=== PATIENT | female | born 1975 | race Caucasian/White ===

== ENCOUNTER 2019-05-17 06:00 | Outpatient (RCR) | payer OTHER, SELFPAY | END 2019-06-16 00:01 | LOC: TPT 06:00 | PROVIDERS: Family Provider Internal Medicine; Visit Provider Specialist | DX: M75.02 Adhesive capsulitis of left shoulder (principal) | CPT/HCPCS: 97110 ×2; 97140 ×2 ==

== ENCOUNTER 2020-12-05 13:11 | Outpatient (CLI) | payer OTHER, SELFPAY ==
--- NOTE | 2020-12-05 13:30 | MM_ITS ---
WS: [id number] BILATERAL DIGITAL SCREENING MAMMOGRAPHY WITH CAD CLINICAL INFORMATION: Z12.39 - Encounter for other screening for malignant neop... HISTORY: Screening mammogram. No current complaints. COMPARISON: TECHNIQUE: Bilateral CC and MLO views. FINDINGS: The breasts are composed of heterogeneous fibroglandular density tissue, which can limit the detectio n of small underlying mass lesions. No suspicious mass, asymmetry, calcifications, or architectural d istortion. No evidence of malignancy. MM/[place] [id number] IMPRESSION: BI-RADS: 1-Negative FOLLOW UP: 1 Year Follow-up Recommend return to annual screening mammography.
--- NOTE | 2020-12-05 13:34 | XR_ITS ---
WS: [id number] SCREENING DEXA SCAN [place] CLINICAL INFORMATION: M85.80 - Other specified disorders of bone density and st... COMPARISON: FINDINGS: The L1-L4 bone mineral density measures 0.967 g/cm2. This corresponds to a T score score of -1.8 and Z score of -1.8. Left femoral neck bone mineral density measures 0.866 g/cm2. This corresponds to a T score of -1.1 an d Z score of -0.9. Right femoral neck bone mineral density measures 0.885 g/cm2. This corresponds to a T score -1.0of an d Z score of -0.7. Mean femoral neck bone mineral density measures 0.875 g/cm2. This corresponds to a T score of -1.0 an d Z score of -0.8. XR/XR DEXA axial skeleton* [id number] IMPRESSION: Osteopenia Patient's FRAX calculated 10 year probability for major osteoporotic fracture i s 3.0 % and osteoporotic hip fracture is 0.2%.
== END 2020-12-05 13:12 | disposition home or self-care (01) ==
LOC: RADSHAW 13:16
PROVIDERS: PCP Internal Medicine; Visit Provider Nurse Practitioner Women's Health
DX: M85.80 Other specified disorders of bone density and structure, unspecified site (principal); Z12.31 Encounter for screening mammogram for malignant neoplasm of breast; Z78.0 Asymptomatic menopausal state
CPT/HCPCS: 77067; 77080

== ENCOUNTER → 2022-03-15 14:59 | Outpatient (BNVA) | payer OTHER, SELFPAY | PROVIDERS: PCP Internal Medicine; Visit Provider Nurse Practitioner Women's Health | DX: Z01.419 Encounter for gynecological examination (general) (routine) without abnormal findings (principal); N76.3 Subacute and chronic vulvitis; E28.319 Asymptomatic premature menopause; Z79.890 Hormone replacement therapy; N95.0 Postmenopausal bleeding; M85.88 Other specified disorders of bone density and structure, other site | CPT/HCPCS: 87624 ==

== ENCOUNTER → 2022-03-29 14:47 | Outpatient (BNVA) | payer OTHER, SELFPAY | PROVIDERS: PCP Internal Medicine; Visit Provider Nurse Practitioner Women's Health | DX: N95.0 Postmenopausal bleeding (principal) | CPT/HCPCS: 76830 ==

== ENCOUNTER 2022-09-04 07:52 | Day surgery (SDC) | payer OTHER, SELFPAY ==
[2022-09-03 13:12] VITALS: BMI 26.6
[2022-09-04] VITALS (7 sets, daily range): BP systolic 90–145; BP diastolic 52–81; PULSE 45–76; RESP 14–18; TEMP 36.2–36.8; O2SAT 95–100
--- NOTE | 2022-09-04 08:39 | ANES.PREANE2 ---
Pre-Anesthetic Assessment Height/Weight: Height 1.68 m Weight 74.843 kg Temp Pulse Resp BP Pulse Ox O2 Del Method 97.4 F L 76 16 145/70 98 09/04/22 08:18 09/04/22 08:18 09/04/22 08:18 09/04/22 08:18 09/04/22 08:18 09/04/22 08:24 Preop Diagnosis: PMB Operation Date: 09/04/22 09:25 Proposed Procedures p Hysteroscopy, dilation and curettage with Myosure [id number], N95.0(Not Applicable) - Rosie Campbell MD s Dilation And Curettage (D&C)(Not Applicable) - Rosie Campbell MD Familial anesthetic complications: None Was Beta Yasir taken within 24 hours: N/A Was Clonidine taken within 24 hours: N/A Last intake: Intake Last Liquid Date 09/03/22 Last Liquid Time 22:30 Last Solid Date 09/03/22 Last Solid Time 22:30 Social No alcohol and No tobacco Exam alert, oriented x 3, clear to auscultation bilaterally and regular rate & rhythm Airway Mallampati: Class I Dentition: full Premature Menopause d/t ovarian failure Anesthetic Plan ASA status: 2 Anesthesia: General Risk of > 500 ml blood loss (7ml/kg in children): No Medications/Allergies Home Medications Medication Instructions Recorded Confirmed Last Taken Type estradiol 0.5 mg tablet 0.5 mg PO DAILY #90 tabs 03/15/22 09/04/22 09/03/22 20:00 Rx medroxyprogesterone 2.5 mg tablet 2.5 mg PO DAILY #90 tabs 03/15/22 09/04/22 09/03/22 20:30 Rx misoprostol 200 mcg tablet 600 mcg PO Q6H PRN pmb #24 tabs 07/04/22 09/03/22 Unknown Rx (Cytotec) misoprostol 200 mcg tablet 600 mcg PO Q6H #24 tabs 08/31/22 09/04/22 09/04/22 06:00 Rx (Cytotec) Allergies Allergy/AdvReac Type Severity Reaction Status Date / Time No Known Allergies Allergy Verified 07/04/22 15:01 [facility] Anesthesia Medical History No pertinent past medical history neghx: htn,dm,thyroid,dvt/pe PCP: Dr. Rhoades Osteopenia Pleural effusion, left (~10/2013) Premature menopause on HRT Diagnosed by Dr. Jaramillo and confirmed by endocrinology and [place] Surgical History No pertinent past surgical history Family History Grandmother Breast cancer Paternal--dx age 80's Diabetes Paternal Grandfather Colon cancer Paternal---dx age 61 Mother Diabetes Father Rectal cancer dx age 72 Denies family history of Ovarian cancer Heart disease Hypercholesteremia Hypertension Uterine cancer Thyroid disease Stroke Data Anesthesia Cardiac Studies: No Data to Display
[2022-09-04 09:07] LABS: OR HCG Qualitative Urine Negative (Negative)
[2022-09-04 09:10] LABS: Basophils % 0.6 %; Eosinophils # 0.1 10^3/uL (0.0-0.8); Eosinophils % 3.3 %; Hematocrit 38.7 % (37.0-47.0); Lymphocytes # 1.2 10^3/uL (0.8-4.8); Lymphocytes % 36.4 %; Mean Corpuscular HGB Conc 33.6 g/dL (30.0-36.0); Mean Corpuscular Hemoglobin 34.7 pg (28.0-34.0); Mean Corpuscular Volume 103.2 fl (81-99); Mean Platelet Volume 9.8 fL (7.4-10.4); Monocytes # 0.3 10^3/uL (0.2-0.9); Monocytes % 7.4 %; Neutrophils # 1.76 10^3/uL (1.8-7.7); Nucleated Red Blood Cells % 0 %; Platelet Count 166 10^3/cmm (130-400); Red Blood Count 3.75 10^6/uL (4.1-5.3); Red Cell Distribution Width 12.3 % (12.1-15.1); White Blood Count 3.4 10^3/uL (4.0-10.0)
[2022-09-04] MEDS: sodium chloride 0.9% 1,000 ML 30 ML IV (09:10)
[2022-09-04] MEDS: scopolamine 1.5 Patch 1 PATCH TRANSDERMA (09:11)
[2022-09-04 09:26] LABS: Anion Gap 15.1 (5-19); Blood Urea Nitrogen 13 mg/dL (6-20); Carbon Dioxide 25 mmol/L (22-29); Chloride 101 mmol/L (98-107); Glomerular Filtration Rate 89.7 mL/min (90-130); Glucose 103 mg/dL (65-115); Osmolality Calculated 284 mOsm/kg (285-295); Potassium 4.1 mmol/L (3.5-5.1); Sodium 137 mmol/L (136-145)
--- NOTE | 2022-09-04 10:43 | W.PM.OPSUD ---
Surgery/Procedure H&P Update DATE OF PROCEDURE: September 04, 2022 DATE H&P PERFORMED: 08/31/22 H&P UPDATE INFORMATION: I have reviewed H&P completed within last 30 days, I have examined patient prior to procedure and No changes to prior documentation PREOP DIAGNOSIS: PMB PLANNED PROCEDURE: Operation Date: 09/04/22 09:25 Proposed Procedures p Hysteroscopy, dilation and curettage with Myosure [id number], N95.0(Not Applicable) - Rosie Campbell MD s Dilation And Curettage (D&C)(Not Applicable) - Rosie Campbell MD Related Problem List Diagnoses (1) Postmenopausal bleeding:
[2022-09-04] MEDS: ceFAZolin 2,000 MG in sodium chloride 0.9% (plus) 50 ML 100 MG IV (10:50)
--- NOTE | 2022-09-04 11:32 | P.OP_ITS ---
Operative Report Date of procedure: September 04, 2022 Pre-op diagnosis: Preop Diagnosis PMB Post-op diagnosis: same Post-op findings: 7 week sized uterus. Procedure done: Hysteroscopy, dilation and curettage with myosure Specimens removed/disposition: endoemetrial curettings to pathology Surgeon: Rosie Campbell Anesthesia: General Estimated blood loss (mL): 2 IV fluids (mL): 300 Complications: none Findings: hysteroscopy deficit 195 ml Condition: stable Disposition: PACU Procedure: The patient was taken to the operating room where monitored anesthesia was administered and to be adequate. She was prepped and draped in the normal sterile fashion in the dorsal lithotomy position in [facility]. A weighted speculum was placed into the vagina and the anterior lip of the cervix grasped with a single-tooth tenaculum. The uterus was sounded to 7 cm. The cervix was dilated to 16 [place]. The hysteroscope was advanced into the endometrial cavity. There was inflamed tissue with 1 possible anterior fibroid visualized. The MyoSure device was activated and the tissue was removed. Pictures were taken pre and post procedure. All instruments were removed. The patient tolerated the procedure well. Sponge lap and needle counts were correct x3. She was taken to the recovery room in stable condition.
--- NOTE | 2022-09-04 11:36 | P.DS_ITS ---
Discharge Providers Date of Admission: 09/04/22 Date of Discharge: September 04, 2022 Attending Provider at Admission: Dr. Campbell Attending Provider at Discharge: Rosie Campbell MD Primary Care Provider: Ammy Rhoades MD Diagnoses at Discharge Discharge Diagnosis (1) Postmenopausal bleeding: Status: Acute Hospital Course Hospital Course The patient was admitted for surgery. She did well postoperatively and was ready for discharge Discharge Data Studies Completed and Pending Laboratory Results WBC 3.4 10^3/uL (4.0-10.0) L 09/04/22 08:45 RBC 3.75 10^6/uL (4.1-5.3) L 09/04/22 08:45 Hgb 13.0 g/dL (11.5-15.3) 09/04/22 08:45 Hct 38.7 % (37.0-47.0) 09/04/22 08:45 MCV 103.2 fl (81-99) H 09/04/22 08:45 MCH 34.7 pg (28.0-34.0) H 09/04/22 08:45 MCHC 33.6 g/dL (30.0-36.0) 09/04/22 08:45 RDW 12.3 % (12.1-15.1) 09/04/22 08:45 Plt Count 166 10^3/cmm (130-400) 09/04/22 08:45 MPV 9.8 fL (7.4-10.4) 09/04/22 08:45 Neut % (Auto) 52.0 % 09/04/22 08:45 Lymph % (Auto) 36.4 % 09/04/22 08:45 [place] % (Auto) 7.4 % 09/04/22 08:45 Eos % (Auto) 3.3 % 09/04/22 08:45 Baso % (Auto) 0.6 % 09/04/22 08:45 Neut # (Auto) 1.76 10^3/uL (1.8-7.7) L 09/04/22 08:45 Lymph # (Auto) 1.2 10^3/uL (0.8-4.8) 09/04/22 08:45 [place] # (Auto) 0.3 10^3/uL (0.2-0.9) 09/04/22 08:45 Eos # (Auto) 0.1 10^3/uL (0.0-0.8) 09/04/22 08:45 Baso # (Auto) 0.0 10^3/uL (0.0-0.1) 09/04/22 08:45 Nucleated RBC % (auto) 0 % 09/04/22 08:45 Nucleated RBCs # 0.0 /100WBC 09/04/22 08:45 Sodium 137 mmol/L (136-145) 09/04/22 08:45 Potassium 4.1 mmol/L (3.5-5.1) 09/04/22 08:45 Chloride 101 mmol/L (98-107) 09/04/22 08:45 Carbon Dioxide 25 mmol/L (22-29) 09/04/22 08:45 Anion Gap 15.1 (5-19) 09/04/22 08:45 BUN 13 mg/dL (6-20) 09/04/22 08:45 Creatinine 0.7 mg/dL (0.5-0.9) 09/04/22 08:45 GFR Calculation 89.7 mL/min (90-130) L 09/04/22 08:45 Glucose 103 mg/dL (65-115) 09/04/22 08:45 Calculated Osmolality 284 mOsm/kg (285-295) L 09/04/22 08:45 Calcium 9.0 mg/dL (8.5-10.5) 09/04/22 08:45 Urine HCG, Qual Negative (Negative) 09/04/22 09:04 Vitals Last Vital Signs Temp 97.4 F L 09/04/22 08:18 Pulse 76 09/04/22 08:18 Resp 16 09/04/22 08:18 BP 145/70 09/04/22 08:18 Pulse Ox 98 09/04/22 08:18 O2 Del Method 09/04/22 08:24 Discharge Plan Discharge Patient Disposition: Home Condition: Stable Prescriptions: Continued povidone-iodine [Betadine Swabsticks] 10 % swab 1 applic topical ONCE Qty: 150 0RF lidocaine (PF) 10 mg/mL (1 %) solution 10 mg SUBCUT ONCE Qty: 10 0RF medroxyprogesterone 2.5 mg tablet 2.5 mg PO DAILY Qty: 90 3RF Rx Instructions: Take in conjunction with estradiol estradiol 0.5 mg tablet 0.5 mg PO DAILY Qty: 90 3RF Rx Instructions: Take in conjunction with medroxyprogesterone misoprostol [Cytotec] 200 mcg tablet 600 mcg PO Q6H PRN (Reason: pmb) Qty: 24 0RF Rx Instructions: Start med at 6 AM, 48 hours prior to procedure. Discontinued misoprostol [Cytotec] 200 mcg tablet 600 mcg PO Q6H Qty: 24 0RF Rx Instructions: take 600 mg (3 pills) starting noon 09/02. Last dose 6 am morning of surgery. Discharge Orders: Discharge Order (Routine); Ordered 09/04/22 Ordered By: Rosie Campbell Discharge Attestations Time Spent in Discharge Care*: less than 30 min Quality Metrics Clinical Quality Measures [ No reported AMI, CVA or VTE this stay] Coding Level of Care Code Acute Code for Chg Fwd Diagnoses Postmenopausal bleeding N95.0
[2022-09-04] MEDS: ketorolac 30 mg/mL INJ IVP (12:31)
--- NOTE | 2022-09-04 13:29 | ANE.PACU2 ---
Inpatient post-anesthesia follow up: Airway intact: Yes Vital signs: Temperature 98.3 F Pulse Rate 63 Respiratory Rate 16 Blood Pressure 110/66 Pulse Oximetry 99 Oxygen Delivery Me thod Room Air Oxygen Flow Rate Fraction of Inspir ed Oxygen Hydration adequate: Yes Nausea and vomiting: No Pain level: 1 Mental status: Baseline
== END 2022-09-04 13:00 | disposition home or self-care (01) ==
PROVIDERS: Anesthesiology; PCP Internal Medicine; Visit Provider Obstetrics & Gynecology
PROC: 0UDB8ZZ Extraction of Endometrium, Via Natural or Artificial Opening Endoscopic (ICD-10-PCS; CPT 58558; principal; 2022-09-04 09:15)
PROC: (CPT 58120; 2022-09-04 09:15)
DX: N95.0 Postmenopausal bleeding (principal)
CPT/HCPCS: 58558; 36415; 80048; 81025; 84703; 85025; 88305; J0690; J1100; J1170; J1885; J2250; J2405; J2704; J3010; J7030

== ENCOUNTER 2023-08-15 14:45 | Outpatient (CLI) | payer OTHER, SELFPAY ==
--- NOTE | 2023-08-15 15:00 | MM_ITS ---
WS: [id number] VIEWS: MLO and CC views both breasts. 3D digital tomosynthesis is also included in this exam. Comparison made with prior exam of 08/01/2016, 03/12/2019, 12/05/2020,. Findings: There was no sign of mass, architectural distortion or suspicious calcification in either breast. The breasts are heterogeneously dense which may obscure small masses Impression: MM/[place] [id number] BI-RADS: 2-Benign finding. FOLLOW-UP: 1 Year Follow-up This mammogram was also analyzed by the Computer Aided Detection System R2 Imag e New Patient Escort.
--- NOTE | 2023-08-15 15:30 | XR_ITS ---
WS: [id number] SCREENING DEXA SCAN [place] CLINICAL INFORMATION: M85.88 - Other specified disorders of bone density and st... COMPARISON: 2020 FINDINGS: The L1-L4 bone mineral density measures 0.974 g/cm2. This corresponds to a T score score of -1.7 and Z score of -1.9. Left femoral neck bone mineral density measures 0.895 g/cm2. This corresponds to a T score of -0.9 an d Z score of -0.8. Right femoral neck bone mineral density measures 0.900 g/cm2. This corresponds to a T score -0.9of an d Z score of -0.8. Mean femoral neck bone mineral density measures 0.897 g/cm2. This corresponds to a T score of -0.9 an d Z score of -0.8. IMPRESSION: Osteopenia lumbar spine. Normal bone mineralization femoral necks. Patient's FRAX calculated 10 year probability for major osteoporotic fracture is 3.5% and osteoporoti c hip fracture is 0.2%. Bone mineral density lumbar spine increased 0.8% Bone mineral density femoral necks increased 2.5%
== END 2023-08-15 14:46 | disposition home or self-care (01) ==
LOC: RAD 14:45
PROVIDERS: PCP Internal Medicine; Visit Provider Nurse Practitioner Women's Health
DX: Z12.31 Encounter for screening mammogram for malignant neoplasm of breast (principal); M85.88 Other specified disorders of bone density and structure, other site; Z78.0 Asymptomatic menopausal state
CPT/HCPCS: 77063; 77067; 77080

== ENCOUNTER → 2024-08-11 16:20 | Outpatient (BNVA) | payer OTHER, SELFPAY | PROVIDERS: PCP Internal Medicine; Visit Provider Nurse Practitioner Women's Health | DX: M85.88 Other specified disorders of bone density and structure, other site (principal); Z13.21 Encounter for screening for nutritional disorder; E28.319 Asymptomatic premature menopause; Z79.890 Hormone replacement therapy; Z01.419 Encounter for gynecological examination (general) (routine) without abnormal findings | CPT/HCPCS: 82306; 82670; 87624 ==

== ENCOUNTER 2024-09-02 13:20 | Outpatient (CLI) | payer OTHER, SELFPAY ==
--- NOTE | 2024-09-02 15:20 | MM_ITS ---
WS: [id number] BILATERAL 3D TOMOSYNTHESIS DIGITAL SCREENING MAMMOGRAPHY WITH CAD CLINICAL INFORMATION: Z12.31 - Encounter for screening mammogram for malignant ... HISTORY: Screening mammogram. No current complaints. COMPARISON: 2023 TECHNIQUE: Bilateral CC and MLO views. FINDINGS: The breasts are composed of heterogeneous fibroglandular density tissue, which can limit the detection of small underlying mass lesions. No suspicious mass, asymmetry, calcifications, or architectural distortion. No evidence of malignancy. MM/MM [facility] tomosynthesis [id number] IMPRESSION: DENSITY: The breasts are heterogeneously dense, which may obscure small masses. BI-RADS: 2 - Benign FOLLOW UP: 1 Year Follow-up Recommend return to annual screening mammography.
== END 2024-09-02 13:21 | disposition home or self-care (01) ==
LOC: MOBLMAM 15:11
PROVIDERS: PCP Nurse Practitioner Women's Health; Visit Provider Nurse Practitioner Women's Health
DX: Z12.31 Encounter for screening mammogram for malignant neoplasm of breast (principal); R92.333 Mammographic heterogeneous density, bilateral breasts
CPT/HCPCS: 77063; 77067

== ENCOUNTER 2025-01-08 10:14 | Outpatient (CLI) | payer OTHER, SELFPAY | END 2025-01-08 10:15 | disposition home or self-care (01) | LOC: RAD 10:17 → LAB 10:44 | PROVIDERS: PCP Nurse Practitioner Women's Health; Visit Provider Nurse Practitioner Women's Health | DX: R00.2 Palpitations (principal); E28.319 Asymptomatic premature menopause; Z79.890 Hormone replacement therapy; R41.89 Other symptoms and signs involving cognitive functions and awareness; R53.83 Other fatigue | CPT/HCPCS: 80053; 82306; 82607; 82670; 82728; 82746; 83036; 83540; 84439; 84443; 85025 ==

== ENCOUNTER → 2025-01-11 08:55 | Outpatient (BNVA) | payer OTHER, SELFPAY | PROVIDERS: PCP Nurse Practitioner Women's Health; Visit Provider Internal Medicine Cardiovascular Disease | DX: R00.2 Palpitations (principal); R53.83 Other fatigue; E28.319 Asymptomatic premature menopause; Z79.890 Hormone replacement therapy | CPT/HCPCS: 93005 ==